=== PATIENT | female | born 2005 | race Asian ===

== ENCOUNTER 2024-06-29 19:26 | Inpatient (IN) | payer OTHER ==
[2024-06-29 20:03] LABS: Actual Bicarbonate (HCO3v) 26.4 mEq/L (22-28); Analyzer IN Cardio ER; Base Excess 2.4 mEq/L (-2.0 to +3.0); Calcium, Ionized (venous) 1.12 mmol/L (1.16-1.32); Chloride (VBG) 100 mmol/L (98-106); Hematocrit-VBG 36 % (36.0-47.0); Hemoglobin (Hb) 12.4 g/dL (11.7-15.5); Potassium (VBG) 3.26 mmol/L (3.70-5.30); Sodium 139 mmol/L (133-146); pH (venous) 7.453 (7.32-7.43)
[2024-06-29 20:12] LABS: #Basophils 0.03 10x3/uL (0.0-0.2); %Basophils 0.2 % (0.0-1.0); %Eosinophils 0.5 % (0.0-10.0); %Lymphocytes 6.5 % (28.0-48.0); %Monocytes 5.6 % (0.0-4.0); %Neutrophils 84.7 % (31.0-61.0); Hematocrit 33.6 % (36.0-47.0); Hemoglobin 11.4 g/dL (12.0-16.0); Mean Corpuscular HGB CONC 33.9 g/dL (32.0-36.0); Mean Corpuscular Hemoglobin 30.1 pg (25.0-35.0); Mean Corpuscular Volume 88.7 fL (78.0-98.0); Mean Platelet Volume 8.5 fL (7.4-10.4); Platelet Count 402 10x3/uL (130-400); RBC Distribution Width 12.7 % (11.5-14.5); Red Blood Cell (RBC) Count 3.79 mill/uL (4.00-5.20)
[2024-06-29] MEDS ORDERED: Acetaminophen 500 MG TAB ONE (20:28)
[2024-06-29] MEDS ORDERED: Sodium Chloride 0.9% 100 ML ONE (20:28)
[2024-06-29] MEDS ORDERED: cefTRIAXone (ROCEPHIN) 1 GM VIAL ONE ×2 (20:29→20:44)
[2024-06-29 20:31] LABS: ALT (SGPT) 35 U/L (8-55); AST (SGOT) 30 U/L (5-30); Albumin 3.2 g/dL (3.5-5.0); Alkaline Phosphatase 107 U/L (40-100); Anion Gap 15 mmol/L (10-20); BUN (Urea Nitrogen) 7 mg/dL (8.4-21.0); Bilirubin, Total 0.2 mg/dL (0.2-1.2); Calc. Creatinine Clearance 0 mL/min (70-130); Calcium 8.8 mg/dL (7.8-10.44); Carbon Dioxide 23 mmol/L (22-29); Chloride 104 mmol/L (98-107); Estimated GFR 130; Globulin 3.8 g/dL (2.4-3.5); Glucose 93 mg/dL (70-105); Potassium 3.2 mmol/L (3.5-5.1); Sodium 139 mmol/L (136-145)
[2024-06-29] MEDS ORDERED: Potassium Chloride 20 MEQ TAB ONE (20:56)
[2024-06-29] MEDS ORDERED: Ibuprofen 200 MG TAB ONE (21:03)
[2024-06-29 21:51] LABS: Bilirubin Negative (Negative); Blood, Urine 2+ (Negative); CAUTI Indications for Culture Dysuria,urgency,freq; Clarity Turbid (Clear); Glucose, Urine (Dipstick) Normal (Negative); Ketone, Urine 20 mg/dL (Negative); Leukocyte 500 Leu/uL (Negative); Nitrite Negative (Negative); Protein, Urine (Dipstick) Negative (Neg-Trace); Specific Gravity, Urine 1.008 (1.002-1.036); Urobilinogen Normal mg/dL (Less than 2); WBC/HPF Greater than 50 HPF (0-3)
[2024-06-29 21:53] LABS: Bacteria/HPF 1+ HPF (None Seen)
[2024-06-29 21:54] LABS: Urine Culture Reflex Yes Yes
[2024-06-29] MEDS ORDERED: Metoclopramide HCl 10 MG (2 mL) VIAL ONE (22:14)
[2024-06-30] MEDS ORDERED: Ondansetron PF 4 MG/2 ML Vial IVP PRN (00:36)
[2024-06-30] MEDS: Vancomycin (BATCH) 1.5 GM in Premix 1 BAG IVPB SCH ×2 (00:58→10:26)
[2024-06-30] MEDS: Sodium Chloride 0.9% 1,000 ML IV SCH (00:59)
[2024-06-30 01:01] VITALS: BMI 23.8
[2024-06-30] MEDS: Acetaminophen 325 MG TAB PO PRN (03:37)
[2024-06-30] MEDS: Ketorolac Tromethamine 30 MG (1 mL) VIAL IVP PRN (03:43)
[2024-06-30 06:20] LABS: Anion Gap 10 mmol/L (10-20); BUN (Urea Nitrogen) 4 mg/dL (8.4-21.0); Calc. Creatinine Clearance 143 mL/min (70-130); Calcium 7.5 mg/dL (7.8-10.44); Carbon Dioxide 21 mmol/L (22-29); Chloride 111 mmol/L (98-107); Estimated GFR 133; Glucose 113 mg/dL (70-105); Potassium 3.1 mmol/L (3.5-5.1); Sodium 139 mmol/L (136-145)
[2024-06-30] MEDS: Cefepime 1 GM in Sodium Chloride 0.9% 100 ML IVPB SCH (07:53)
[2024-06-30 07:55] LABS: Band 19 % (5-11); Lymphocytes 9 % (28-48); Metamyelocyte 1 % (0-0); Monocytes 1 % (0-4); Neutrophil 70 % (31-61); Platelet Adequacy Comment Platelets Normal; Polychromasia SLIGHT = 2-3 cells HPF (0-2); Toxic Granulation SLIGHT
[2024-06-30 07:59] LABS: Hematocrit 28.8 % (36.0-47.0); Hemoglobin 9.6 g/dL (12.0-16.0); Mean Corpuscular HGB CONC 33.3 g/dL (32.0-36.0); Mean Corpuscular Hemoglobin 30.2 pg (25.0-35.0); Mean Corpuscular Volume 90.6 fL (78.0-98.0); Mean Platelet Volume 8.6 fL (7.4-10.4); Platelet Count 349 10x3/uL (130-400); Red Blood Cell (RBC) Count 3.18 mill/uL (4.00-5.20)
[2024-06-30] MEDS: Ibuprofen 200 MG TAB PO SCH (13:20)
[2024-06-30] MEDS: Morphine 2 MG/ML VIAL SLOW IVP PRN (15:00)
[2024-06-30] MEDS ORDERED: Iopamidol-370 76% 500 ML MDV (1 ML CHARGE) ONE (15:26)
[2024-06-30] MEDS: metroNIDAZOLE 500 MG in Premix 1 BAG IVPB SCH (17:28)
[2024-06-30] MEDS: Cefepime 2 GM in Sodium Chloride 0.9% 100 ML IVPB SCH (20:06)
[2024-06-30] MEDS: traMADol HCl 50 MG TAB PO PRN (20:06)
[2024-06-30] MEDS ORDERED: Electrolyte Replacement Protocol 1 EACH FS SCH (20:45)
[2024-06-30] MEDS: Ibuprofen 600 MG TAB PO SCH (21:17)
[2024-06-30] MEDS: Vancomycin (BATCH) 1.25 GM in Premix 1 BAG IVPB SCH (21:42)
[2024-06-30] MEDS: Potassium Chloride 20 MEQ TAB PO SCH (23:10)
[2024-07-01 05:09] LABS: #Basophils 0.05 10x3/uL (0.0-0.2); %Basophils 0.3 % (0.0-1.0); %Eosinophils 0.7 % (0.0-10.0); %Lymphocytes 9.1 % (28.0-48.0); %Monocytes 6.1 % (0.0-4.0); %Neutrophils 82.1 % (31.0-61.0); Hematocrit 26.9 % (36.0-47.0); Mean Corpuscular HGB CONC 33.5 g/dL (32.0-36.0); Mean Corpuscular Hemoglobin 30.5 pg (25.0-35.0); Mean Corpuscular Volume 91.2 fL (78.0-98.0); Mean Platelet Volume 8.9 fL (7.4-10.4); Platelet Count 325 10x3/uL (130-400); RBC Distribution Width 13.2 % (11.5-14.5); Red Blood Cell (RBC) Count 2.95 mill/uL (4.00-5.20)
[2024-07-01 05:38] LABS: ALT (SGPT) 24 U/L (8-55); AST (SGOT) 19 U/L (5-30); Albumin 2.1 g/dL (3.5-5.0); Alkaline Phosphatase 83 U/L (40-100); Anion Gap 9 mmol/L (10-20); BUN (Urea Nitrogen) 5 mg/dL (8.4-21.0); Bilirubin, Total 0.1 mg/dL (0.2-1.2); Calc. Creatinine Clearance 159 mL/min (70-130); Calcium 7.9 mg/dL (7.8-10.44); Carbon Dioxide 22 mmol/L (22-29); Chloride 113 mmol/L (98-107); Estimated GFR 137; Globulin 2.9 g/dL (2.4-3.5); Glucose 112 mg/dL (70-105); Magnesium 1.9 mg/dL (1.7-2.2); Phosphorus 2.8 mg/dL (2.3-4.7); Potassium 3.4 mmol/L (3.5-5.1); Sodium 141 mmol/L (136-145)
[2024-07-01] MEDS: Potassium Chloride 20 MEQ TAB PO SCH (08:08)
[2024-07-01] MEDS ORDERED: Electrolyte Replacement Protocol 1 EACH FS SCH (09:45)
[2024-07-01] MEDS: Magnesium 2 GM/50 ML(in water) 2 GM in Premix 1 BAG IVPB SCH (12:57)
[2024-07-01] MEDS: Vancomycin 1 GM in Premix 1 BAG IVPB SCH (16:49)
[2024-07-01] MEDS: Morphine 2 MG/ML VIAL SLOW IVP PRN (18:13)
[2024-07-01] MEDS: Saccharomyces boulardii 250 MG CAP PO SCH (21:54)
[2024-07-01] MEDS: Enoxaparin 40 MG (0.4 mL) SYRINGE SC SCH (21:54)
[2024-07-02 06:46] LABS: #Basophils 0.05 10x3/uL (0.0-0.2); %Basophils 0.3 % (0.0-1.0); %Eosinophils 1.8 % (0.0-10.0); %Lymphocytes 15.6 % (28.0-48.0); %Monocytes 5.1 % (0.0-4.0); %Neutrophils 74.4 % (31.0-61.0); Hemoglobin 9.4 g/dL (12.0-16.0); Mean Corpuscular HGB CONC 33.6 g/dL (32.0-36.0); Mean Corpuscular Hemoglobin 30.4 pg (25.0-35.0); Mean Corpuscular Volume 90.6 fL (78.0-98.0); Mean Platelet Volume 8.6 fL (7.4-10.4); Platelet Count 353 10x3/uL (130-400); RBC Distribution Width 13.1 % (11.5-14.5); Red Blood Cell (RBC) Count 3.09 mill/uL (4.00-5.20)
[2024-07-02 06:58] LABS: Calc. Creatinine Clearance 148 mL/min (70-130); Estimated GFR 134; Vancomycin, Random 16.9 ug/mL (See Comment)
[2024-07-02 07:00] LABS: Anion Gap 12 mmol/L (10-20); BUN (Urea Nitrogen) 4 mg/dL (8.4-21.0); Calcium 8.6 mg/dL (7.8-10.44); Carbon Dioxide 25 mmol/L (22-29); Chloride 105 mmol/L (98-107); Glucose 98 mg/dL (70-105); Potassium 3.6 mmol/L (3.5-5.1); Sodium 138 mmol/L (136-145)
[2024-07-02] MEDS: Saccharomyces boulardii 250 MG CAP PO SCH (07:42)
[2024-07-02] MEDS: Sodium Chloride 0.65% Nasal 44 ML BOT EA NARE PRN (10:00)
[2024-07-02 11:31] VITALS: BP 110/73; TEMP 97.9
[2024-07-02] MEDS: Magnesium 2 GM/50 ML(in water) 2 GM in Premix 1 BAG IVPB SCH (11:31)
[2024-07-02] MEDS ORDERED: Cefepime 2 GM in Sodium Chloride 0.9% 100 ML IVPB SCH (17:00)
== END 2024-07-02 12:58 | disposition home or self-care (01) | DRG 776 ==
LOC: ERS 19:26 → T4-B 23:18
PROVIDERS: ADMIT Student in an Organized Health Care Education/Training Program; ATTEND Internal Medicine
DX: O85 Puerperal sepsis (principal); N39.0 Urinary tract infection, site not specified; O86.20 Urinary tract infection following delivery, unspecified; E87.6 Hypokalemia; K04.7 Periapical abscess without sinus; O90.89 Other complications of the puerperium, not elsewhere classified; O90.81 Anemia of the puerperium; D64.9 Anemia, unspecified; O91.22 Nonpurulent mastitis associated with the puerperium; Z90.89 Acquired absence of other organs
CPT/HCPCS: 36415; 70487; 80048; 80053; 80202; 81001; 82805; 83605; 83735; 84100; 85025; 87040; 87081; 87086; 93005; 94760; 96374; 96375; J0692; J0696; J1650; J1885; J2272; J2765; J3370; J3475; J7030; Q9967